=== PATIENT | male | born 1970 | race Caucasian/White ===

== ENCOUNTER 2020-11-26 12:19 | Emergency (ER) | payer OTHER ==
[~2020-11-26] VITALS: Ht 172.7 cm; Wt 106.6 kg
[2020-11-26 13:14] LABS: ABSOLUTE BASOPHILS 0.1 thou/uL (0.0-0.2); ABSOLUTE EOSINOPHILS 0.5 thou/uL (0.0-0.7); ABSOLUTE LYMPHOCYTES 2.9 thou/uL (0.8-5.3); ABSOLUTE MONOCYTES 0.9 thou/uL (0.0-1.2); ABSOLUTE NEUTROPHILS 6.3 thou/uL (1.6-8.1); BASOPHILS 1.4 %; EOSINOPHILS 4.8 %; HEMOGLOBIN 14.1 gm/dL (14.0-18.0); LYMPHOCYTES 27.2 %; MCH 26.6 pg (26.0-34.0); MCHC 33.5 g/dL (28.0-37.0); MCV 79.3 fL (80.0-100.0); MONOCYTES 8.3 %; MPV 8.2 fl. (7.2-11.1); NUCLEATED RBCS 0 /100WBC; PLATELET COUNT* 264 thou/uL (150-400); POLYS 58.3 %; RBC 5.29 mil/uL (4.50-6.00); RDW-CV 14.7 % (10.5-14.5); WBC 10.8 thou/uL (4.0-11.0)
[2020-11-26 13:27] LABS: CALCIUM 8.7 mg/dL (8.5-10.1); CREATININE 0.9 mg/dL (0.6-1.3); POTASSIUM 3.8 mmol/L (3.5-5.1)
[2020-11-26 13:37] LABS: ALBUMIN 3.5 g/dL (3.4-5.0); TOTAL BILIRUBIN 0.2 mg/dL (<0.1-1.0); TOTAL PROTEIN 7.1 g/dL (6.4-8.2)
--- NOTE | 2020-11-26 14:04 | EKG ---
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
[2020-11-26] MEDS ORDERED: AMOXICILLIN 50500 MG PO (14:09)
[2020-11-26] MEDS ORDERED: VENTOLIN HFA 1818 GM INH (14:09)
[2020-11-26] MEDS ORDERED: MEDROLDOSEPACK PO (14:09)
[2020-11-26] MEDS ORDERED: TESSALON PERLE100 MG PO (14:09)
[2020-11-26 14:22] VITALS: BP 146/89
== END 2020-11-26 14:23 | disposition home or self-care (01) ==
LOC: M.ERS 12:19
PROVIDERS: Nurse Practitioner Family
DX: J98.8 Other specified respiratory disorders (principal); Z20.822 Contact with and (suspected) exposure to COVID-19; M47.9 Spondylosis, unspecified; Z90.49 Acquired absence of other specified parts of digestive tract

== ENCOUNTER 2020-12-23 18:33 | Emergency (ER) | payer OTHER ==
[~2020-12-23] VITALS: Ht 172.7 cm; Wt 114.3 kg
[~2020-12-23 18:33] MED LIST: AMOXICILLIN 50500 MG PO; MEDROLDOSEPACK PO; TESSALON PERLE100 MG PO; VENTOLIN HFA 1818 GM INH
[2020-12-23] MEDS ORDERED: NORCO5 PO (19:26)
[2020-12-23 21:19] VITALS: BP 155/94
== END 2020-12-23 21:20 | disposition home or self-care (01) ==
LOC: M.ERS 18:33
DX: M54.14 Radiculopathy, thoracic region (principal); M54.6 Pain in thoracic spine; Z90.49 Acquired absence of other specified parts of digestive tract

== ENCOUNTER 2021-03-27 23:34 | Emergency (ER) | payer BC ==
[~2021-03-27] VITALS: Ht 172.7 cm; Wt 112.5 kg
[~2021-03-27 23:34] MED LIST changes: +NORCO5 PO
[2021-03-27 23:45] VITALS: BP 188/99
== END 2021-03-28 03:20 | disposition home or self-care (01) ==
LOC: M.ERS 23:34
DX: M54.5 Low back pain (principal); Z90.49 Acquired absence of other specified parts of digestive tract

== ENCOUNTER 2021-05-22 19:08 | Emergency (ER) | payer OTHER ==
[~2021-05-22] VITALS: Ht 172.7 cm; Wt 114.8 kg
[2021-05-22 20:11] LABS: ABSOLUTE BASOPHILS 0.2 thou/uL (0.0-0.2); ABSOLUTE EOSINOPHILS 0.4 thou/uL (0.0-0.7); ABSOLUTE LYMPHOCYTES 2.5 thou/uL (0.8-5.3); ABSOLUTE MONOCYTES 0.8 thou/uL (0.0-1.2); ABSOLUTE NEUTROPHILS 8.4 thou/uL (1.6-8.1); BASOPHILS 1.4 %; EOSINOPHILS 3.3 %; HEMATOCRIT 43.1 % (42.0-52.0); HEMOGLOBIN 14.3 gm/dL (14.0-18.0); LYMPHOCYTES 20.6 %; MCH 27.1 pg (26.0-34.0); MONOCYTES 6.5 %; MPV 8.2 fl. (7.2-11.1); NUCLEATED RBCS 0 /100WBC; PLATELET COUNT* 258 thou/uL (150-400); POLYS 68.2 %; RBC 5.26 mil/uL (4.50-6.00); RDW-CV 14.7 % (10.5-14.5); WBC 12.3 thou/uL (4.0-11.0)
[2021-05-22 20:20] LABS: CALCIUM 8.5 mg/dL (8.5-10.1); CREATININE 0.9 mg/dL (0.6-1.3); POTASSIUM 3.8 mmol/L (3.5-5.1)
[2021-05-22 20:30] LABS: ALBUMIN 3.2 g/dL (3.4-5.0); TOTAL BILIRUBIN 0.2 mg/dL (<0.1-1.0); TOTAL PROTEIN 6.2 g/dL (6.4-8.2)
[2021-05-22 21:58] LABS: AMP/METHAMP Negative (Negative); BARBITURATES Negative (Negative); BENZODIAZEPINES Negative (Negative); COCAINE Negative (Negative); METHADONE Negative (Negative); OPIATES Negative (Negative); PCP Negative (Negative); THC Negative (Negative)
[2021-05-22 23:00] VITALS: BP 156/98
--- NOTE | 2021-05-23 07:52 | EKG ---
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1970 Requested By: Zuleika Hawkins Order Number: [id number] MD: Ihsan Valencia Measurements Intervals [place] Rate: 83 P: 34 [place]: 146 QRS: 93 QRSD: 100 T: 11 QT: 351 QTc: 413 Interpretive Statements Sinus rhythm Borderline right axis deviation Nonspecific T wave abnormality, inferior leads Baseline wander in lead(s) II,III,aVF,V1 Compared to ECG 11/26/2020 13:10:25 No significant changes Electronically Signed On 05-23-2021 7:52:41 CDT by Ihsan Valencia [email or web address] <ELECTRONICALLY SIGNED> By: Ihsan Valencia MD, FACC 05/23/21 0752 13 13 Ihsan Valencia MD, FACC /EPI
== END 2021-05-22 23:00 | disposition home or self-care (01) ==
LOC: M.ERS 19:08
PROVIDERS: Emergency Medicine
DX: R07.89 Other chest pain (principal); Z20.822 Contact with and (suspected) exposure to COVID-19; R06.02 Shortness of breath; Z90.49 Acquired absence of other specified parts of digestive tract

== ENCOUNTER 2021-09-15 06:20 | Emergency (ER) | payer OTHER ==
[~2021-09-15] VITALS: Ht 172.7 cm; Wt 114.8 kg
[2021-09-15 06:48] LABS: ABSOLUTE BASOPHILS 0.1 thou/uL (0.0-0.2); ABSOLUTE EOSINOPHILS 0.3 thou/uL (0.0-0.7); ABSOLUTE LYMPHOCYTES 2.9 thou/uL (0.8-5.3); ABSOLUTE MONOCYTES 0.9 thou/uL (0.0-1.2); ABSOLUTE NEUTROPHILS 5.6 thou/uL (1.6-8.1); BASOPHILS 1.2 %; EOSINOPHILS 3.5 %; HEMATOCRIT 43.1 % (42.0-52.0); HEMOGLOBIN 14.3 gm/dL (14.0-18.0); LYMPHOCYTES 29.4 %; MCH 27.1 pg (26.0-34.0); MCHC 33.2 g/dL (28.0-37.0); MCV 81.7 fL (80.0-100.0); MONOCYTES 8.7 %; MPV 8.8 fl. (7.2-11.1); NUCLEATED RBCS 0 /100WBC; PLATELET COUNT* 298 thou/uL (150-400); POLYS 57.2 %; RBC 5.28 mil/uL (4.50-6.00); RDW-CV 14.1 % (10.5-14.5); WBC 9.8 thou/uL (4.0-11.0)
[2021-09-15 07:07] LABS: CALCIUM 8.8 mg/dL (8.5-10.1); CREATININE 0.9 mg/dL (0.6-1.3); POTASSIUM 4.4 mmol/L (3.5-5.1)
[2021-09-15 07:14] LABS: INFLUENZA A ANTIGEN Negative (Negative); INFLUENZA B ANTIGEN Negative (Negative)
[2021-09-15 07:18] LABS: ALBUMIN 3.4 g/dL (3.4-5.0); TOTAL BILIRUBIN 0.1 mg/dL (<0.1-1.0); TOTAL PROTEIN 7.1 g/dL (6.4-8.2)
[2021-09-15] MEDS ORDERED: TESSALON PERLE100 MG PO (09:08)
[2021-09-15 09:15] VITALS: BP 135/84
--- NOTE | 2021-09-15 10:49 | EKG ---
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
--- NOTE | 2021-09-15 10:49 | EKG ---
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 09/15/21 1049 1 1 Nicolas Miller MD, [facility] /EPI
== END 2021-09-15 09:16 | disposition home or self-care (01) ==
LOC: M.ERS 06:20
PROVIDERS: Personal Emergency Response Attendant
DX: J06.9 Acute upper respiratory infection, unspecified (principal); Z20.822 Contact with and (suspected) exposure to COVID-19; R06.00 Dyspnea, unspecified; R07.89 Other chest pain; I10 Essential (primary) hypertension; M19.90 Unspecified osteoarthritis, unspecified site; Z90.49 Acquired absence of other specified parts of digestive tract

== ENCOUNTER 2021-11-25 08:06 | Emergency (ER) | payer OTHER ==
[~2021-11-25] VITALS: Ht 172.7 cm; Wt 113.8 kg
[2021-11-25 08:34] LABS: ABSOLUTE BASOPHILS 0.2 thou/uL (0.0-0.2); ABSOLUTE EOSINOPHILS 0.4 thou/uL (0.0-0.7); ABSOLUTE LYMPHOCYTES 2.7 thou/uL (0.8-5.3); ABSOLUTE MONOCYTES 0.8 thou/uL (0.0-1.2); ABSOLUTE NEUTROPHILS 6.9 thou/uL (1.6-8.1); BASOPHILS 1.4 %; EOSINOPHILS 3.3 %; HEMATOCRIT 47.3 % (42.0-52.0); HEMOGLOBIN 15.7 gm/dL (14.0-18.0); LYMPHOCYTES 24.8 %; MCH 26.9 pg (26.0-34.0); MCHC 33.1 g/dL (28.0-37.0); MCV 81.3 fL (80.0-100.0); MONOCYTES 7.6 %; MPV 8.3 fl. (7.2-11.1); NUCLEATED RBCS 0 /100WBC; PLATELET COUNT* 313 thou/uL (150-400); POLYS 62.9 %; RBC 5.82 mil/uL (4.50-6.00); RDW-CV 14.2 % (10.5-14.5); WBC 10.9 thou/uL (4.0-11.0)
[2021-11-25 08:47] LABS: CALCIUM 8.2 mg/dL (8.5-10.1); CREATININE 0.9 mg/dL (0.6-1.3); POTASSIUM 3.8 mmol/L (3.5-5.1)
[2021-11-25 08:58] LABS: ALBUMIN 3.7 g/dL (3.4-5.0); TOTAL BILIRUBIN 0.4 mg/dL (<0.1-1.0); TOTAL PROTEIN 7.5 g/dL (6.4-8.2)
[2021-11-25] MEDS ORDERED: NORVASC10 MG PO (09:16)
[2021-11-25 09:39] VITALS: BP 150/94
--- NOTE | 2021-11-25 09:58 | EKG ---
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 0258 8 8 Nicolas Miller MD, [facility] /EPI
== END 2021-11-25 09:41 | disposition home or self-care (01) ==
LOC: M.ERS 08:06
PROVIDERS: Family Medicine
DX: I10 Essential (primary) hypertension (principal); M19.90 Unspecified osteoarthritis, unspecified site; Z90.49 Acquired absence of other specified parts of digestive tract